=== PATIENT | male | born 1940 | race Hispanic/Latino ===

== ENCOUNTER → 2020-05-31 | Outpatient (CLI) | payer MEDICARE ==
[~2020-05-31] MED LIST: IOHEXOL-350 75 ML VIAL IV ONE
== END | disposition home or self-care (01) ==
LOC: RAH 13:37
PROVIDERS: ATTEND Neurological Surgery
DX: M47.26 Other spondylosis with radiculopathy, lumbar region (principal); M51.26 Other intervertebral disc displacement, lumbar region; M51.16 Intervertebral disc disorders with radiculopathy, lumbar region; M48.061 Spinal stenosis, lumbar region without neurogenic claudication
CPT/HCPCS: 72133; Q9967